=== PATIENT | male | born 1975 | race Caucasian/White ===

== ENCOUNTER 2022-03-06 17:08 | Emergency (ER) | payer BC, SELFPAY ==
--- NOTE | 2022-03-06 17:20 | CTR_ITS ---
PROCEDURE INFORMATION: Exam: CT Head Without Contrast Exam date and time: 03/06/2022 5:55 PM Age: 46 years old Clinical indication: Syncope and collapse; Additional info: AMS TECHNIQUE: Imaging protocol: Computed tomography of the head without contrast. Radiation optimization: All CT scans at this facility use at least one of these dose optimization techniques: automated exposure control; mA and/or kV adjustment per patient size (includes targeted exams where dose is matched to clinical indication); or iterative reconstruction. COMPARISON: No relevant prior studies available. RADIATION DOSE METRICS: Total DLP (mGy-cm): 1159.08 FINDINGS: Brain: Normal. No hemorrhage. Unremarkable white matter. No mass effect. Cerebral ventricles: No ventriculomegaly. Paranasal sinuses: Visualized sinuses are unremarkable. No fluid levels. Mastoid air cells: Visualized mastoid air cells are well aerated. Bones/joints: Unremarkable. No acute fracture. Soft tissues: Unremarkable. CT/CT head wo con* [id number] IMPRESSION: No acute intracranial abnormality.
--- NOTE | 2022-03-06 17:20 | XRR_ITS ---
PROCEDURE INFORMATION: Exam: XR Chest Exam date and time: 03/06/2022 5:32 PM Age: 46 years old Clinical indication: Cough; Additional info: Dyspnea/cough TECHNIQUE: Imaging protocol: Radiologic exam of the chest. Views: 1 view. COMPARISON: No relevant prior studies available. FINDINGS: Lungs: Unremarkable. No consolidation. Pleural spaces: Unremarkable. No pleural effusion. No pneumothorax. Heart/Mediastinum: Unremarkable. No cardiomegaly. Bones/joints: Unremarkable. XR/XR chest 1V portable [id number] IMPRESSION: No acute findings.
--- NOTE | 2022-03-06 17:27 | ECG_ITS ---
[facility] Test Date: 2022-03-06 Pat Name: Chris Kee Department: Room: Gender: Male Hospital Product Specialist: : 1975 Requested By: Moe Deutsch Order Number: [id number] Adrienne MD: Geetha Blas M.D. Measurements Intervals [place] Rate: 75 P: 59 [place]: 147 QRS: 14 QRSD: 92 T: 58 QT: 376 QTc: 422 Interpretive Statements SINUS RHYTHM POSSIBLE LEFT ATRIAL ENLARGEMENT [-0.1mV P-WAVE IN V1/V2] No previous ECG available for comparison Electronically Signed On 03-06-2022 23:41:57 CDT by Geetha Blas M.D. [id number]
[2022-03-06 17:32] VITALS: BP 113/62; PULSE 81; RESP 16; TEMP 36.9; O2SAT 95; BMI 35.9
--- NOTE | 2022-03-06 17:38 | W.ED.SEIZURE ---
Documented by User: Moe Isaacs DO 03/07/22 08:15 HPI - Seizure General: Chief Complaint: Seizure Stated Complaint: SEIZURE Time Seen by Provider: 03/06/22 17:20 Source: patient Mode of arrival: ambulatory Limitations: no limitations History of Present Illness: HPI Narrative: 46-year-old male was getting Serica began to have a seizure. Bystanders did 2 minutes of CPR he then spontaneously recovered by the time EMS report responded he was awake and alert. He did not have loss of bladder control. He has had seizures in the past but did not get a full evaluation was never started on medication. Had remote history of a minor head trauma. MD complaint: seizure Onset (ago): minute(s) Description of Episode: loss of consciousness and tonic-clonic movement Witnessed: Yes - by Bystander Trauma: No Seizure History: Yes Place: [facility] Possible Precipitating Event: none Associated symptoms: Reports confusion (Post ictal); Deny chest pain, chills, fever(s) or malaise Treatments prior to arrival: other (Bystander initiated CPR) Review of Systems Const: Denies: fever(s), chills, body aches, change in appetite, fatigue or malaise ENMT: Denies: throat pain, ear or mastoid pain, nasal discharge or nasal congestion Card: Denies: chest pain, edema, dyspnea on exertion or orthopnea Resp: Denies: dyspnea, productive cough or non-productive cough GI: Denies: abdominal pain, nausea, vomiting, hematemesis, coffee ground emesis, diarrhea, constipation, bloating, hematochezia or melena : Denies: flank pain, dysuria, urinary frequency or urinary urgency Neuro: Reports: confusion (Post ictal) PFS ED PFSH: Medical History (Updated 03/07/22 @ 08:12 by Moe Isaacs DO) Generalized seizure No pertinent past medical history Social History (Updated 03/07/22 @ 08:10 by Moe Isaacs DO) Smoking and tobacco status: never smoked Alcohol intake: never Physical Exam Const: COMMON NORMALS: no acute distress GENERAL APPEARANCE: cooperative and comfortable ORIENTATION/CONSCIOUSNESS: Yes awake, Yes oriented to person, Yes oriented to place and Yes oriented to time HENMT: COMMON NORMALS: normocephalic, atraumatic, hearing grossly normal bilaterally, external ears normal, EAC's normal, TM's normal bilaterally, Normal nasal mucous membranes and turbinates present, moist oral mucous membranes and oropharynx normal HEAD & SCALP: normocephalic and atraumatic NOSE: Normal nasal mucous membranes and turbinates present EXTERNAL EAR: Yes external ears normal EXTERNAL AUDITORY CANAL: EAC's normal TYMPANIC MEMBRANE: TM's normal bilaterally Eye: COMMON NORMALS: Equal, round and reactive pupils present, EOMs intact bilaterally, conjunctivae normal and no scleral icterus CONJUNCTIVA: Yes conjunctivae normal PUPIL: Yes Equal, round and reactive pupils present Resp: COMMON NORMALS: normal respiratory effort, No retractions, No use of accessory muscles and clear to auscultation bilaterally AUSCULTATION: clear to auscultation bilaterally Cardio: COMMON NORMALS: regular rate, regular rhythm and No murmurs present (Cardio) RATE: regular rate RHYTHM: regular rhythm GI: COMMON NORMALS: Soft to palpation and No hepatosplenomegaly present AUSCULTATION: Yes normoactive bowel sounds PALPATION: Yes Soft to palpation, No Tenderness to palpation present (GI), No Guarding due to palpation present (GI) and Yes No hepatosplenomegaly present Extremity: COMMON NORMALS: normal to inspection, capillary refill normal, no clubbing, cyanosis or edema, no calf tenderness and no pedal edema Neuro: SENSORIUM/ORIENTATION: Yes oriented to person, Yes oriented to place and Yes oriented to time Skin: COMMON NORMALS: no rashes or lesions noted GENERAL SKIN EXAM: no rashes or lesions noted Course Vital Signs: Vital signs: Vital Signs Temperature 98.5 F 03/06/22 17:32 Pulse Rate 66 03/06/22 19:53 Respiratory Rate 16 03/06/22 17:32 Blood Pressure 109/56 03/06/22 19:53 Pulse Oximetry 95 03/06/22 19:53 MDM - Seizure MDM Narrative Medical decision making narrative: Care signed out to Dr. John at change of shift. See final notes for diagnosis and disposition. Patient presents here with a seizure patient's head CT and blood work are all normal he has had a history of seizures in the past very few is not on any meds we will start him on Keppra we will get him follow-up with neurology he is to return if worsening he understands agrees to plan. Lab Data Result diagrams: 03/06/22 17:05 03/06/22 17:05 Labs: Radiology Impressions Chest X-Ray 03/06/22 17:20 IMPRESSION: No acute findings. Head CT 03/06/22 17:20 IMPRESSION: No acute intracranial abnormality. Laboratory Results WBC 11.2 10^3/uL (4.0-10.0) H 03/06/22 17:05 RBC 5.18 10^6/uL (4.1-5.3) 03/06/22 17:05 Hgb 17.3 g/dL (11.7-16.6) H 03/06/22 17:05 Hct 48.7 % (42.0-52.0) 03/06/22 17:05 MCV 94.0 fl (80-94) 03/06/22 17:05 MCH 33.4 pg (28.0-34.0) 03/06/22 17:05 MCHC 35.5 g/dL (30.0-36.0) 03/06/22 17:05 RDW 13.4 % (12.1-15.1) 03/06/22 17:05 Plt Count 225 10^3/cmm (130-400) 03/06/22 17:05 MPV 9.6 fL (7.4-10.4) 03/06/22 17:05 Neut % (Auto) 54.3 % 03/06/22 17:05 Lymph % (Auto) 32.4 % 03/06/22 17:05 [place] % (Auto) 7.4 % 03/06/22 17:05 Eos % (Auto) 5.1 % 03/06/22 17:05 Baso % (Auto) 0.5 % 03/06/22 17:05 Neut # (Auto) 6.06 10^3/uL (1.8-7.7) 03/06/22 17:05 Lymph # (Auto) 3.6 10^3/uL (0.8-4.8) 03/06/22 17:05 [place] # (Auto) 0.8 10^3/uL (0.2-0.9) 03/06/22 17:05 Eos # (Auto) 0.6 10^3/uL (0.0-0.8) 03/06/22 17:05 Baso # (Auto) 0.1 10^3/uL (0.0-0.1) 03/06/22 17:05 Nucleated RBC % (auto) 0 % 03/06/22 17:05 Nucleated RBCs # 0.0 /100WBC 03/06/22 17:05 Sodium 141 mmol/L (136-145) 03/06/22 17:05 Potassium 3.3 mmol/L (3.5-5.1) L 03/06/22 17:05 Chloride 100 mmol/L (98-107) 03/06/22 17:05 Carbon Dioxide 23 mmol/L (22-29) 03/06/22 17:05 Anion Gap 21.3 (5-19) H 03/06/22 17:05 BUN 11 mg/dL (6-20) 03/06/22 17:05 Creatinine 1.0 mg/dL (0.7-1.2) 03/06/22 17:05 GFR Calculation 80.1 mL/min (90-130) L 03/06/22 17:05 Glucose 61 mg/dL (65-115) L 03/06/22 17:05 Calculated Osmolality 289 mOsm/kg (285-295) 03/06/22 17:05 Calcium 9.5 mg/dL (8.5-10.5) 03/06/22 17:05 Total Bilirubin 0.4 mg/dL (0.15-1.2) 03/06/22 17:05 AST 23 U/L (0-40) 03/06/22 17:05 ALT 28 U/L (0-41) 03/06/22 17:05 Alkaline Phosphatase 81 IU/L (40-130) 03/06/22 17:05 Creatine Kinase 111 U/L (39-308) 03/06/22 17:05 Troponin T Baseline 6 ng/L (0-15) 03/06/22 17:05 Total Protein 7.3 g/dL (6.6-8.7) 03/06/22 17:05 Albumin 4.9 g/dL (3.5-5.2) 03/06/22 17:05 Globulin 2.4 g/dL (1.3-4.6) 03/06/22 17:05 Urine Color Yellow (Yellow) 03/06/22 18:25 Urine Appearance Clear (CLEAR) 03/06/22 18:25 Urine pH 5 (5-7) 03/06/22 18:25 Ur Specific [place] 1.025 (1.005-1.030) 03/06/22 18:25 Urine Protein Neg (Negative) 03/06/22 18:25 Urine Glucose (UA) Norm (Normal) 03/06/22 18:25 Urine Ketones 1+ (Negative) H 03/06/22 18:25 Urine Blood Neg (Negative) 03/06/22 18:25 Urine Nitrate Negative (Negative) 03/06/22 18:25 Urine Bilirubin Neg (Negative) 03/06/22 18:25 Urine Urobilinogen Norm mg/dL (Negative) 03/06/22 18:25 Ur Leukocyte Esterase Negative (Negative) 03/06/22 18:25 Discharge Plan Discharge Patient Disposition: Home Clinical Impression: Generalized seizure Condition: Stable Prescriptions: New Keppra 500 mg tablet 500 mg PO BID Qty: 60 0RF Discharge Orders: Discharge ED (Routine); Ordered 03/06/22 Ordered By: Yunior John Referrals: Vani Carmen MD [Physician] - 1-3 days Discharge Diet: Advance as tolerated Discharge Activity: Resume usual activity Patient Instructions: Recurrent Seizures in Adults (ED) Coding Level of Care Code ED Manufacturing Engineer for Chg Fwd Documented by User: Yunior John MD 03/06/22 19:00 HPI - Seizure General: Chief Complaint: Seizure Stated Complaint: SEIZURE Time Seen by Provider: 03/06/22 17:20 PFSH ED PFSH: Medical History (Updated 03/07/22 @ 08:12 by Moe Isaacs DO) Generalized seizure No pertinent past medical history Social History (Updated 03/07/22 @ 08:10 by Moe Isaacs DO) Smoking and tobacco status: never smoked Alcohol intake: never Course Vital Signs: Vital signs: Vital Signs Temperature 98.5 F 03/06/22 17:32 Pulse Rate 66 03/06/22 19:53 Respiratory Rate 16 03/06/22 17:32 Blood Pressure 109/56 03/06/22 19:53 Pulse Oximetry 95 03/06/22 19:53 MDM - Seizure MDM Narrative Medical decision making narrative: Patient presents here with a seizure patient's head CT and blood work are all normal he has had a history of seizures in the past very few is not on any meds we will start him on Keppra we will get him follow-up with neurology he is to return if worsening he understands agrees to plan. Lab Data Result diagrams: 03/06/22 17:05 03/06/22 17:05 Labs: Radiology Impressions Chest X-Ray 03/06/22 17:20 IMPRESSION: No acute findings. Head CT 03/06/22 17:20 IMPRESSION: No acute intracranial abnormality. Laboratory Results WBC 11.2 10^3/uL (4.0-10.0) H 03/06/22 17:05 RBC 5.18 10^6/uL (4.1-5.3) 03/06/22 17:05 Hgb 17.3 g/dL (11.7-16.6) H 03/06/22 17:05 Hct 48.7 % (42.0-52.0) 03/06/22 17:05 MCV 94.0 fl (80-94) 03/06/22 17:05 MCH 33.4 pg (28.0-34.0) 03/06/22 17:05 MCHC 35.5 g/dL (30.0-36.0) 03/06/22 17:05 RDW 13.4 % (12.1-15.1) 03/06/22 17:05 Plt Count 225 10^3/cmm (130-400) 03/06/22 17:05 MPV 9.6 fL (7.4-10.4) 03/06/22 17:05 Neut % (Auto) 54.3 % 03/06/22 17:05 Lymph % (Auto) 32.4 % 03/06/22 17:05 [place] % (Auto) 7.4 % 03/06/22 17:05 Eos % (Auto) 5.1 % 03/06/22 17:05 Baso % (Auto) 0.5 % 03/06/22 17:05 Neut # (Auto) 6.06 10^3/uL (1.8-7.7) 03/06/22 17:05 Lymph # (Auto) 3.6 10^3/uL (0.8-4.8) 03/06/22 17:05 [place] # (Auto) 0.8 10^3/uL (0.2-0.9) 03/06/22 17:05 Eos # (Auto) 0.6 10^3/uL (0.0-0.8) 03/06/22 17:05 Baso # (Auto) 0.1 10^3/uL (0.0-0.1) 03/06/22 17:05 Nucleated RBC % (auto) 0 % 03/06/22 17:05 Nucleated RBCs # 0.0 /100WBC 03/06/22 17:05 Sodium 141 mmol/L (136-145) 03/06/22 17:05 Potassium 3.3 mmol/L (3.5-5.1) L 03/06/22 17:05 Chloride 100 mmol/L (98-107) 03/06/22 17:05 Carbon Dioxide 23 mmol/L (22-29) 03/06/22 17:05 Anion Gap 21.3 (5-19) H 03/06/22 17:05 BUN 11 mg/dL (6-20) 03/06/22 17:05 Creatinine 1.0 mg/dL (0.7-1.2) 03/06/22 17:05 GFR Calculation 80.1 mL/min (90-130) L 03/06/22 17:05 Glucose 61 mg/dL (65-115) L 03/06/22 17:05 Calculated Osmolality 289 mOsm/kg (285-295) 03/06/22 17:05 Calcium 9.5 mg/dL (8.5-10.5) 03/06/22 17:05 Total Bilirubin 0.4 mg/dL (0.15-1.2) 03/06/22 17:05 AST 23 U/L (0-40) 03/06/22 17:05 ALT 28 U/L (0-41) 03/06/22 17:05 Alkaline Phosphatase 81 IU/L (40-130) 03/06/22 17:05 Creatine Kinase 111 U/L (39-308) 03/06/22 17:05 Troponin T Baseline 6 ng/L (0-15) 03/06/22 17:05 Total Protein 7.3 g/dL (6.6-8.7) 03/06/22 17:05 Albumin 4.9 g/dL (3.5-5.2) 03/06/22 17:05 Globulin 2.4 g/dL (1.3-4.6) 03/06/22 17:05 Urine Color Yellow (Yellow) 03/06/22 18:25 Urine Appearance Clear (CLEAR) 03/06/22 18:25 Urine pH 5 (5-7) 03/06/22 18:25 Ur Specific [place] 1.025 (1.005-1.030) 03/06/22 18:25 Urine Protein Neg (Negative) 03/06/22 18:25 Urine Glucose (UA) Norm (Normal) 03/06/22 18:25 Urine Ketones 1+ (Negative) H 03/06/22 18:25 Urine Blood Neg (Negative) 03/06/22 18:25 Urine Nitrate Negative (Negative) 03/06/22 18:25 Urine Bilirubin Neg (Negative) 03/06/22 18:25 Urine Urobilinogen Norm mg/dL (Negative) 03/06/22 18:25 Ur Leukocyte Esterase Negative (Negative) 03/06/22 18:25 Discharge Plan Discharge Patient Disposition: Home Clinical Impression: Generalized seizure Condition: Stable Prescriptions: New Keppra 500 mg tablet 500 mg PO BID Qty: 60 0RF Discharge Orders: Discharge ED (Routine); Ordered 03/06/22 Ordered By: Yunior John Referrals: Vani Carmen MD [Physician] - 1-3 days Discharge Diet: Advance as tolerated Discharge Activity: Resume usual activity Patient Instructions: Recurrent Seizures in Adults (ED) Coding Level of Care Code ED Manufacturing Engineer for Flory Chairez
[2022-03-06 17:47] LABS: Basophils # 0.1 10^3/uL (0.0-0.1); Basophils % 0.5 %; Eosinophils # 0.6 10^3/uL (0.0-0.8); Eosinophils % 5.1 %; Hematocrit 48.7 % (42.0-52.0); Hemoglobin 17.3 g/dL (11.7-16.6); Lymphocytes # 3.6 10^3/uL (0.8-4.8); Lymphocytes % 32.4 %; Mean Corpuscular HGB Conc 35.5 g/dL (30.0-36.0); Mean Corpuscular Hemoglobin 33.4 pg (28.0-34.0); Mean Platelet Volume 9.6 fL (7.4-10.4); Monocytes # 0.8 10^3/uL (0.2-0.9); Monocytes % 7.4 %; Neutrophils # 6.06 10^3/uL (1.8-7.7); Neutrophils % 54.3 %; Nucleated Red Blood Cells % 0 %; Platelet Count 225 10^3/cmm (130-400); Red Blood Count 5.18 10^6/uL (4.1-5.3); Red Cell Distribution Width 13.4 % (12.1-15.1); White Blood Count 11.2 10^3/uL (4.0-10.0)
[2022-03-06 18:52] LABS: Alanine Aminotransferase 28 U/L (0-41); Albumin Level 4.9 g/dL (3.5-5.2); Alkaline Phosphatase 81 IU/L (40-130); Anion Gap 21.3 (5-19); Aspartate Amino Transferase 23 U/L (0-40); Blood Urea Nitrogen 11 mg/dL (6-20); Calcium 9.5 mg/dL (8.5-10.5); Carbon Dioxide 23 mmol/L (22-29); Chloride 100 mmol/L (98-107); Creatine Phosphokinase 111 U/L (39-308); Globulin 2.4 g/dL (1.3-4.6); Glomerular Filtration Rate 80.1 mL/min (90-130); Glucose 61 mg/dL (65-115); Osmolality Calculated 289 mOsm/kg (285-295); Potassium 3.3 mmol/L (3.5-5.1); Sodium 141 mmol/L (136-145); Total Bilirubin 0.4 mg/dL (0.15-1.2); Total Protein 7.3 g/dL (6.6-8.7)
--- NOTE | 2022-03-06 18:52 | PC.NURSE ---
PT PLACED ON CONTINUOUS NIBP, SPO2, AND CM
[2022-03-06 18:53] LABS: Troponin(5th) Baseline 6 ng/L (0-15)
[2022-03-06 18:57] LABS: Add Urine Microscopic? NO; Charge for UA Resulting for Rev
[2022-03-06 18:58] LABS: Specific Gravity, Urine 1.025 (1.005-1.030); Urine Appearance Clear (CLEAR); Urine Color Yellow (Yellow); pH Urine 5 (5-7)
[2022-03-06 18:59] LABS: Bilirubin Urine Neg (Negative); Blood Urine Neg (Negative); Glucose Urine UA Norm (Normal); Ketones Urine 1+ (Negative); Leukocyte Esterase Urine Negative (Negative); Nitrate Urine Negative (Negative); Protein Urine Neg (Negative); Urobilinogen Urine Norm (Negative)
[2022-03-06 19:53] VITALS: BP 109/56; PULSE 66; O2SAT 95
--- NOTE | 2022-03-08 08:49 | DCPLANNER ---
Addendum entered by Farzana Bahena 04/16/22 15:45: Patient had a follow up appointment scheduled with neurology - patient did attend appointment. Addendum entered by Farzana Bahena 03/19/22 11:04: Patient has a follow up appointment scheduled for Friday, March 20, 2022 at 11:[address] Carmen at neurology. Clinic will call patient with appointment information. Original Note: client development manager had message to schedule a follow up appointment for patient with urology. client development manager sent patients information to the front office staff at neurology. Patients information will be printed and reviewed. Clinic will call patient with appointment information.
== END 2022-03-06 19:56 | disposition home or self-care (01) ==
PROVIDERS: Family Medicine; Emergency Provider Emergency Medicine
DX: G40.89 Other seizures (principal)
CPT/HCPCS: 70450; 71045; 80053; 81003; 82550; 84484; 85025; 93005; 96365; 99285; J1953

== ENCOUNTER 2022-08-07 13:22 | Outpatient (CLI) | payer BC, SELFPAY ==
--- NOTE | 2022-08-07 13:45 | USCV_ITS ---
Chilango Chris Age: 46 Gender: M : 1975 Exam Date: 08/07/2022 13:47 Ordering Phys: Tiffany Castanon MD ([email or web address]) Technologist: Rex Fenton Exam Location: [facility] [place] Indication: sob, syncope BP: 140 / 80 HR: 61 Rhythm: Sinus Technical Quality: Adequate MEASUREMENTS (Male / Female) Normal Values 2D ECHO LV Diastolic Diameter PLAX 5.1 cm 4.2 - 5.9 / 3.9 - 5.3 cm LV Systolic Diameter PLAX 3.1 cm IVS Diastolic Thickness 0.7 cm 0.6 - 1.0 / 0.6 - 0.9 cm IVS Systolic Thickness 1.1 cm LVPW Diastolic Thickness 1.6 cm 0.6 - 1.0 / 0.6 - 0.9 cm LVPW Systolic Thickness 2.1 cm LVOT Diameter 2.2 cm LV Ejection Fraction 2D Teich 70.6 % LV Ejection Fraction MOD 2C 60.4 % LV Ejection Fraction 2C AL 60.1 % LA Diameter 3.2 cm LA Width 3.3 cm LA Height 4.4 cm RA Width 3.4 cm RA Height 4.0 cm Aorta at Sinotubular Diameter 2.6 cm IVC Diameter 1.7 cm M-MODE Aortic Annulus Diameter 3.3 cm LA Ao Ratio MM 1.0 MV E Point Septal Separation 0.6 cm DOPPLER AV Peak Velocity 128.0 cm/s LVOT Peak Velocity 97.0 cm/s AV Area Cont Eq vti 3.1 cm squared AV Area Cont Eq pk 2.9 cm squared MV Peak Velocity 86.0 cm/s MV Area PHT 3.7 cm squared Mitral E to A Ratio 0.8 MV E' Velocity 34.5 cm/s Mitral E to MV E' Ratio 5.4 Mitral E to LV E' Lateral Ratio 4.3 Mitral E to LV E' Septal Ratio 7.1 TR Peak Velocity 207.2 cm/s TR Peak Gradient 17.2 mmHg TR Mean Velocity 165.8 cm/s TR Mean Gradient 11.5 mmHg TR Velocity Time Integral 50.0 cm Right Atrial Pressure 3.0 mmHg Pulmonary Artery Systolic Pressu 20.2 mmHg PV Peak Velocity 97.0 cm/s RV Acceleration Time 0.1 s RV Ejection Time 0.3 s RV AcT/ET 0.3 FINDINGS Left Ventricle Normal left ventricular size, systolic function and wall thickness, with no regional wall motion abnormalities. Left ventricular ejection fraction is estimated at 70 %. Normal diastolic function. Right Ventricle Normal right ventricular size and systolic function. Right ventricular systolic pressure 20.2 mmHg. Right Atrium Normal right atrial size. Left Atrium Normal left atrial size. Mitral Valve Structurally normal mitral valve. No mitral valve stenosis. Trace mitral valve regurgitation. Aortic Valve Structurally normal trileaflet aortic valve. No aortic valve stenosis. No aortic valve regurgitation. Tricuspid Valve Structurally normal tricuspid valve. No tricuspid valve stenosis. Trace tricuspid valve regurgitation. Pulmonic Valve Structurally normal pulmonic valve. No pulmonary valve stenosis. Trace pulmonary valve regurgitation. Pericardium No pericardial effusion. Aorta Normal size aortic root and proximal ascending aorta. IVC Normal IVC dimension with >50% respiratory change of the inferior vena cava. CONCLUSIONS 1. Normal left ventricular size, systolic function and wall thickness, with no regional wall motion abnormalities. Left ventricular ejection fraction is estimated at 70 %. Normal diastolic function. 2. Normal right ventricular size and systolic function. 3. Trace tricuspid valve regurgitation. 4. No prior similar studies to compare. Tiffany Castanon MD (Electronically Signed) Final Date: 11 August 2022 17:06 S
[2022-08-07] MEDS: perflutren protein-a microsphr 0.22 mg/mL SDV 3 mL IV (14:46)
== END 2022-08-07 13:23 | disposition home or self-care (01) ==
PROVIDERS: PCP Family Medicine; Visit Provider Internal Medicine Cardiovascular Disease
DX: R55 Syncope and collapse (principal); R06.02 Shortness of breath; I07.1 Rheumatic tricuspid insufficiency
CPT/HCPCS: C8929; Q9956

== ENCOUNTER 2022-08-22 10:39 | Outpatient (CLI) | payer BC, SELFPAY ==
--- NOTE | 2022-08-22 11:00 | MR_ITS ---
WS: [id number] MRI BRAIN WITHOUT CONTRAST HISTORY: Syncope and collapse. COMPARISON: CT head 03/06/2022 TECHNIQUE: Diffusion imaging, multiplanar T1, T2 and FLAIR imaging obtained. No evidence for acute infarct or hemorrhage. Lacy-white matter differentiation is normal. No remote or acute infarcts are volume loss. There are very few scattered subcortical T2 and FLAIR si gnal hyperintensities, predominantly in the frontal and parietal lobes. Very nonspecific. No large te rritory infarct. There is increased CSF surrounding the RIGHT hippocampal formation. The adjacent hip pocampal formations appear symmetric otherwise. No obvious asymmetry or atrophy. The signal otherwise is normal. Ventricles and extra-axial spaces are normal. No inferior displacement of cerebellar tonsils. The sella turcica and pituitary gland are unremarkabl e. Dural venous sinuses and chitimacha of [place] demonstrate no abnormality on this unenhanced studies. Paranasal sinuses: Clear. Mastoid air cells: Normal. Calvarium and scalp: Intact. MR/MR head wo con* [id number] IMPRESSION: 1. No acute infarct, hemorrhage or mass. 2. Very subtle asymmetry of CSF surrounding the hippocampal formations. Greate r CSF on the RIGHT. The hippocampal formations themselves otherwise appear symm etric. Probably normal variation. 3. Very minimal small vessel ischemic type changes otherwise.
== END 2022-08-22 10:40 | disposition home or self-care (01) ==
PROVIDERS: PCP Family Medicine; Visit Provider Specialist
DX: R29.90 Unspecified symptoms and signs involving the nervous system (principal); R55 Syncope and collapse
CPT/HCPCS: 70551